=== PATIENT | female | born 1980 | race Hispanic/Latino ===

== ENCOUNTER 2021-03-29 19:10 | Emergency (ER) | payer BC ==
--- OUTSIDE RECORDS SUMMARY | 2021-03-29 19:12 | XMS REPORT | Continuity of Care Document ---
:1980 Author Organization [facility] t Address [address] [place] [address] Care Team Providers Name Role Phone Doctor Unassigned, [place] Attending Clinician Unavailable RADIOLOGY Attending Clinician Unavailable William PENA Attending Clinician Unavailable LALO Attending Clinician Unavailable Payers Payer Name Policy Type Policy Number Effective Date Expiration Date S ource Problems Condition Condition Condition Status Onset Resolution Last Treating Co mments Source Name Details Category Date Date Treatment Clinician Date Migraine Migraine Disease Active Unive rs with with 9-28 ity of status status 00:00: [place] migrainosu migrainosu 00 Me dical s s Branch Persistent Persistent Disease Active U nivers headaches headaches 9-26 ity of 00:00: [address] Headache Headache Disease Active Unive rs 9-25 ity of 00:00: [address] Allergies, Adverse Reactions, Alerts Allergy Allergy Status Severity Reaction(s) Onset Inactive Treating Comm ents Source Name Type Date Date Clinician No Known DA Active U 2017-05 [facility] 2[facility]30 [place] [facility] NO KNOWN Drug Active Univers ALLERGIE Class ity of S [facility] Social History Social Habit Start Date Stop Date Quantity Comments Source Cigarettes smoked 2018-10-12 2018-10-12 Univers ity of current (pack per 00:00:00 00:00:00 [place] ) - Reported Branch Tobacco use and 2018-10-12 2018-10-12 Never used Universit y of exposure 00:00:00 00:00:00 [place] [facility] Alcohol intake 2018-10-12 2018-10-12 Current University of 00:00:00 00:00:00 non-drinker of [facility] alcohol Branch (finding) History of tobacco 2018-08-14 Cigarette Smoker University use 00:00:00 [facility] Sex Ass[birth year] At [birth year] Universit y of 00:00:00 00:00:00 [facility] Smoking Status Start Date Stop Date Source Former smoker 2018-10-12 00:00:00 2018-10-12 [facility] Medications Ordered Filled Start Stop Current Ordering Indication Dosage Frequency Signature Comments Components Source Medication Medication Date Date Medication? Clinician (SIG) Name Name dextroamphe Yes 15mg Take 15 mg Univers tamine-amph 03 by mouth ity of etamine 23:16: daily. [place] (ADDERALL) 13 Medical 15 mg Branch tablet triamcinolo Yes [id number] Apply to [facility] 10-12 area(s) 2 ity of acetonide 00:00: (two) [place] 0.1 % 00 times Medical ointment daily. Branch amoxicillin Yes TK 1 C Q 8 Univers 500 mg 5-20 H TAT ity of capsule 00:00: [place] 00 Medical Branch dextroamphe Yes Univer s tamine-amph 4-04 ity of etamine 15 00:00: [place] mg tablet 00 Medical Branch ondansetron Yes 4mg Take 1 Univ ers (ZOFRAN 4-09 tablet by ity of ODT) 4 mg 00:00: mouth [place] disintegrat 00 every 8 Medic al ing tablet (eight) Branch hours as needed for N/V unresponsi ve to Promethazi ne. acetaminoph Yes 1{tbl} Take 1 Un barbra en-codeine 4-09 tablet by ity of (TYLENOL-CO 00:00: mouth [place] DEINE #3) 00 every 6 Medical 300-30 mg (six) Branch tablet hours as needed for Pain (scale 4-6). SERTraline 2016-05 Yes 100mg Take 100 Un barbra (ZOLOFT) 2-19 mg by ity of 100 mg 03:48: mouth [place] tablet 08 daily. Medical Branch BUSPIRONE 2016-05 Yes Take by Univ ers HCL (BUSPAR 2-19 mouth. ity of ORAL) 03:48: [place] 08 Medical Branch lactulose 2016-05 Yes 10g Take 1 Univer s 10 gram 2-18 Packet by ity of packet 00:00: mouth 3 [place] 00 (three) Medical times Branch daily. Polyethylen 2016-05 Yes 1{packe Take 1 U nivers e Glycol 2-18 t} Packet by ity of 3350 00:00: mouth [place] (MIRALAX) 00 daily. Medical 17 gram Branch powder butalbital- 2016-05 Yes 1{tbl} Take 1 Un barbra acetaminoph 2-18 tablet by ity of en-caff 00:00: mouth [place] 50-325-40 00 every 6 Medical mg tablet (six) Branch hours as needed for Headache (Headache) . sucralfate Yes 1g Take 1 Unive rs 1 gram 6-28 tablet by ity of tablet 00:00: mouth [place] 00 before Medical meals and Branch at bedtime. Pantoprazol Yes 40mg Take 40 mg Univers e 6-28 by mouth ity of (PROTONIX) 00:00: daily. [place] 40 mg 00 Medical delayed-rel Branch ease suspension Polyethylen 2015-05 Yes 17g Take 1 Univ ers e Glycol 0-01 Packet by ity of 3350 00:00: mouth once [place] (MIRALAX) 00 daily as Medica l 17 gram needed for Branch powder Constipati on. topiramate Yes 50mg Take 1 Unive rs (TOPAMAX) 9-28 tablet by ity o f 50 mg 00:00: mouth 2 [place] tablet 00 (two) Medical times Branch daily. sumatriptan Yes 100mg Take 1 Uni vers (IMITREX) 9-28 tablet by ity o f 100 mg 00:00: mouth as [place] tablet 00 needed for Medical Migraine. Branch pantoprazol Yes 40mg Take 1 Univ ers e 9-28 tablet by ity of (PROTONIX) 00:00: mouth [place] 40 mg EC 00 daily. Medical tablet Branch amitriptyli Yes 25mg Take 1 Univ ers ne (ELAVIL) 9-28 tablet by ity of 25 mg 00:00: mouth at [place] tablet 00 bedtime. Medical Branch metoclopram Yes 10mg Take 1 Univ ers osvaldo HCl 9-28 tablet by ity of (REGLAN) 10 00:00: mouth [place] mg tablet 00 every 6 Medical (six) Branch hours as needed for Nausea and Vomiting (N/V). acetaminoph Yes 1{capsu Take 1 U nivers en-caff-but 02-06 le} capsule by it y of albital 00:00: mouth [place] (ESGIC) per 00 every 4 Medic al capsule (four) Branch hours as needed for Headache. ketorolac Yes 10mg Take 1 Univer s (TORADOL) 9-28 tablet by ity o f 10 mg 00:00: mouth [place] tablet 00 every 6 Medical (six) Branch hours as needed for Pain (scale 4-6) or Pain (scale 7-10). Immunizations Ordered Filled Immunization Date Status Comments [facility] Immunization Name Name Td 2015-08-11 [facility] 00:00:00 [facility] Procedures Procedure Date / Time Performed Performing Clinician [facility] REFERRAL- 2020-12-28 05:01:00 Doctor Unassigned, No [facility]iver [facility] [place] REQUEST/RESPONSE Name [facility] Encounters Start End Encounter Admission Attending Care Care Encounter Source Date/Time Date/Time Type Type Clinicians Facility Department ID 2020-12-28 2020-12-28 Orders Doctor YSABEL [id number] [place] [address] 00:00:00 00:00:00 Only Unassigned, BEATRIZ [id number] ity of [place] [facility] [id number] Goran as [id number] [address] 2020-07-25 2020-07-25 Outpatient R RADIOLOGY [facility] [id number] Univers 16:00:00 16:00:00 [id number] ity [facility] 2020-06-28 2020-06-28 Outpatient R BECKY [facility] [id number] Univers 14:30:00 14:30:00 [facility] [id number] 2018-10-12 2018-10-12 Outpatient R LALO [facility] [id number] Univers 18:00:00 18:55:53 [place] ity o f [facility] Results This patient has no known results.
[2021-03-29 21:10] LABS: Urine Blood Trace-intact (Negative); Urine Glucose Negative (Negative); Urine Protein Negative (Negative); Urine Specific Gravity 1.015 (1.005-1.030)
[2021-03-29 21:12] LABS: Urine Specific Gravity/Preg 1.015 (1.005-1.030)
[2021-03-29] MEDS ORDERED: METOCLOPRAMIDE 10 MG/2mL INJ ONE (21:16)
[2021-03-29] MEDS ORDERED: DIPHENHYDRAMINE 50 MG/ML VIAL ONE (21:16)
[2021-03-29] MEDS ORDERED: NA CHLORIDE 0.9% 1,000 ML ONE (21:17)
[2021-03-29] MEDS ORDERED: NA CHLORIDE 0.9% 50 ML ONE (21:17)
--- NOTE | 2021-03-29 21:41 | RAD REPORT ---
EXAM DESCRIPTION: RAD - Chest Single View - 03/29/2021 9:28 pm CLINICAL HISTORY: Chest pain;Dyspnea COMPARISON: <Comparisons> FINDINGS: Lines: None. Lungs: No evidence of edema or pneumonia. Pleural: No significant pleural effusions or pneumothorax. Cardiac: The heart size is within normal limits. Bones: No acute fractures. Other: IMPRESSION: No acute cardiopulmonary disease.
[2021-03-29 21:50] LABS: Absolute Lymphocytes (CBC) 3.3 K/uL (0.7-4.9); Basophils % 0.7 % (0-1.3); Hematocrit 39.4 % (36.0-45.0); MPV 7.8 fL (7.6-11.3); RBC Red Blood Cell Count 4.17 M/uL (3.86-4.86)
[2021-03-29 21:54] LABS: Protime INR 1.03
[2021-03-29 22:13] LABS: ALT/SGPT 62 U/L (12-78); AST/SGOT 39 U/L (15-37); Albumin 3.3 g/dL (3.4-5.0); Alkaline Phosphatase 91 U/L (45-117); BUN Blood Urea Nitrogen 14 mg/dL (7-18); Bicarbonate 20 mmol/L (21-32); Bilirubin Direct < 0.1 mg/dL (0-0.2); Bilirubin Total 0.3 mg/dL (0.2-1.0); Glucose Level 98 mg/dL (74-106); Magnesium 2.2 mg/dL (1.8-2.4); NT PRO-BNP 23 pg/mL (<125); Phosphorus 3.5 mg/dL (2.5-4.9); Potassium 3.8 mmol/L (3.5-5.1); Sodium Level 140 mmol/L (136-145); Troponin (Emerg Dept Use Only) < 0.02 ng/mL (0.0-0.045)
--- NOTE | 2021-03-30 01:10 | ER ---
Nurse's Notes [facility] Name: Katrina Betts Age: 40 yrs Sex: Female : 1980 Arrival Date: 03/29/2021 Time: 19:13 Bed 8 Private MD: Diagnosis: Headache;Chest pain, unspecified;Paresthesias Presentation: 03/29 19:19 Chief complaint: Patient states: at 11 AM I noticed my hands were cold, then they ld1 started tingling. The tingling started to radiate up my left arm and now into my chest causing it harder for me to breathe. Pt reports headache for 2 hours. Coronavirus screen: At this time, the client does not indicate any symptoms associated with coronavirus-19. Ebola Screen: No symptoms or risks identified at this time. Initial Sepsis Screen: Does the patient meet any 2 criteria? No. Patient's initial sepsis screen is negative. Does the patient have a suspected source of infection? No. Patient's initial sepsis screen is negative. Risk Assessment: Do you want to hurt yourself or someone else? Patient reports no desire to harm self or others. Onset of symptoms was March 29, 2021. 19:19 Method Of Arrival: Ambulatory ld1 19:19 Acuity: CINDY 3 ld1 03/30 00:36 Note Pt eating a sandwich and soda. df1 Triage Assessment: 03/29 19:22 Headache History: The patient has had previous headaches and this one is different than ld1 previous episodes, and this one is more severe than previous episodes. General: Appears in no apparent distress. comfortable, Behavior is cooperative, appropriate for age, anxious. Pain: Complains of pain in base of the skull, left arm and lateral aspect of right thigh. Pain: Pain radiates to left arm Pain Quality of pain is described as tingling, throbbing, Pain began 1 day ago. Is continuous. Pain: Also complains of sleeplessness, shortness of breath. EENT: No signs and/or symptoms were reported regarding the EENT system. Neuro: Level of Consciousness is awake, alert, obeys commands, Oriented to person, place, time, situation, Appropriate for age. Cardiovascular: Capillary refill < 3 seconds Patient's skin is warm and dry. Respiratory: Airway is patent Respiratory effort is even, unlabored, Respiratory pattern is regular, symmetrical. GI: Abdomen is round non-distended. : No signs and/or symptoms were reported regarding the genitourinary system. Derm: No signs and/or symptoms reported regarding the dermatologic system. Musculoskeletal: Reports Tingling in both hands and feet. 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 Historical: - Allergies: 19:22 No Known Allergies; ld1 - Home Meds: 19:22 fluoxetine 10 mg Oral cap 1 cap 2 times per day [Active]; Topamax 25 mg Oral tab 1 tab ld1 once daily [Active]; omeprazole 20 mg Oral cpDR 1 cap 2 times per day [Active]; dicyclomine 10 mg Oral cap 1 cap 3 times per day [Active]; Viberzi 75 mg oral tab 1 tab 2 times per day [Active]; Adderall XR 30 mg Oral cp24 1 cap once daily [Active]; Headache Relief (TLR-enlxjmvqtwyh-jdmyzbkr) oral [Active]; Benadryl 12.5 mg/5 mL Oral elix 10 mL every 4 hours [Active]; Zofran 4 mg Oral tab 1 tab 4 times per day [Active]; duloxetine 30 mg oral CDRS 1 cap once daily [Active]; Topamax 15 mg Oral cpSP 1 cap 2 times per day [Active]; 19:30 gabapentin 300 mg oral cap 1 cap 3 times per day [Active]; ld1 - PMHx: 19:22 Anxiety; Irritable bowel syndrome; Depressive disorder; ADD; ld1 - PSHx: 19:22 None; ld1 - Immunization history:: Adult Immunizations up to date, Client reports receiving the 2nd dose of the Covid vaccine. - Social history:: Smoking status: Patient reports the use of cigarette tobacco products, smokes one pack cigarettes per day. Patient uses alcohol, occasionally. Screenin:21 Abuse screen: Denies threats or abuse. Nutritional screening: No deficits noted. df1 Tuberculosis screening: No symptoms or risk factors identified. Fall Risk None identified. Assessment: 22:51 General: Appears uncomfortable, Behavior is calm, cooperative. Pain: Complains of pain df1 in left arm Pain currently is 4 out of 10 on a pain scale. Neuro: No deficits noted. Reports numbness in left arm. Cardiovascular: No deficits noted. Respiratory: No deficits noted. GI: No deficits noted. : No deficits noted. EENT: No deficits noted. Musculoskeletal: No deficits noted. 22:52 Pain: Complains of pain in scalp Pain currently is 4 out of 10 on a pain scale. df1 Vital Signs: 19:19 BP 128 / 103; Pulse 119; Resp 20; Temp 98.7(TE); Pulse Ox 99% on R/A; Weight 95.25 kg; ld1 Height 5 ft. 4 in. (162.56 cm); Pain 6/10; 21:36 BP 110 / 81; Pulse 99; Resp 18; Pulse Ox 100% on R/A; df1 22:52 BP 94 / 63; Pulse 89; Resp 18; Pulse Ox 100% on R/A; df1 03/30 00:36 BP 101 / 68; Pulse 99; Resp 18; Pulse Ox 99% on R/A; df1 03/29 19:19 Body Mass Index 36.05 (95.25 kg, 162.56 cm) ld1 NIH Stroke Scale Scores: 03/29 21:12 NIHSS Score: 0 [facility] ED Course: 19:13 Patient arrived in ED. bp1 19:22 Triage completed. ld1 19:22 Arm band placed on right wrist. ld1 20:43 August Ng MD is Attending Physician. 7 21:05 Camelia Veras is Primary Nurse. df1 21:20 Phosphorus Sent. df1 21:20 TSH Sent. df1 21:20 Basic Metabolic Panel Sent. df1 21:20 CBC with Diff Sent. df1 21:20 LFT's Sent. df1 21:20 Magnesium Sent. df1 21:20 NT PRO-BNP Sent. df1 21:20 PT-INR Sent. df1 21:20 Troponin (emerg Dept Use Only) Sent. df1 21:21 Patient has correct armband on for positive identification. Placed in gown. Bed in low df1 position. Call light in reach. Side rails up X 1. lunchroom monitor on. Pulse ox on. NIBP on. 21:21 Inserted saline lock: 20 gauge in right forearm, using aseptic technique. df1 21:21 No provider procedures requiring assistance completed. df1 21:28 XRAY Chest (1 view) In Process Unspecified. EDMS 22:35 CT Chest For PE Angio In Process Unspecified. EDMS 22:36 CT Head C Spine In Process Unspecified. EDMS 03/30 02:03 IV discontinued, intact, bleeding controlled, No redness/swelling at site. Pressure df1 dressing applied. Administered Medications: 03/29 21:35 Drug: Benadryl (diphenhydrAMINE) 50 mg Route: IVP; Site: right forearm; df1 21:35 Drug: NS 0.9% 1000 ml Route: IV; Rate: 1000 ml; Site: right forearm; df1 21:36 Drug: Reglan (metoCLOPramide) 10 mg Route: IVP; Site: right forearm; df1 Outcome: 03/30 01:10 Discharge ordered by . 7 02:03 Discharged to home ambulatory. df1 02:03 Condition: stable 02:03 Demonstrated understanding of instructions, follow-up care. 02:03 Patient left the ED. df1 NIH Stroke Scale - NIH Stroke Score Date: 03/29/2021 Time: 21:12 Total Score = 0 1a. Level of Consciousness (LOC) - 0(Alert) 1b. Level of Consciousness (LOC) (Month \T\ Age) - 0(Both) 1c. LOC Commands (Open \T\ Closes Eyes/Stretching Press Operator) - 0(Both) 2. Best Gaze (Lateral Gaze Paresis) - 0(Normal) 3. Visual Field Loss - 0(No visual loss) 4. Facial Palsy - 0(Normal) 5a. Left Arm: Motor (10-second hold) - 0(No drift) 5b. Right Arm: Motor (10-second hold) - 0(No drift) 6a. Left Leg: Motor (5-second hold - always test supine) - 0(No drift) 6b. Right Leg: Motor (5-second hold - always test supine) - 0(No drift) 7. Limb Ataxia (finger/nose \T\ heel/hein - test with eyes open) - 0(Absent) 8. Sensory Loss (pinprick arms/legs/face) - 0(Normal) 9. Best Language: Aphasia (description/naming/reading) - 0(No aphasia) 10. Dysarthria (speech clarity - read or repeat words) - 0(Normal) 11. Extinction and Inattention (visual/tactile/auditory/spatial/personal) - 0(No abnormality) Initials: 7 Signatures: Dispatcher [employer] EDHans Terrell ds4 Agnieszka Riojas Maurice, MD MD 7 Mallorie Reyes RN RN ld1 Camelia Veras df1 Corrections: (The following items were deleted from the chart) 03/29 19:26 19:22 Allergies: Aspirin; ld1 ld1 21:28 21:28 Inserted saline lock: 20 gauge ds4 ds4
--- NOTE | 2021-03-30 01:11 | EDPHYS ---
Physician Documentation [facility] Name: Katrina Betts Age: 40 yrs Sex: Female : 1980 Arrival Date: 03/29/2021 Time: 19:13 Bed 8 Private MD: ED Physician August Ng HPI: 03/29 21:05 This 40 yrs old Female presents to ER via Ambulatory with complaints of mh7 Headache, Numbness Of Arm. 21:06 The patient's problem is reported as paresthesias, all over. Onset: The mh7 symptoms/episode began/occurred today, at 11:00. Duration: The episodes are intermittent. Context: the episode(s) was witnessed, by no one, symptoms became apparent on March 29, 2021, at 11:00. occurred at work, occurred while the patient was sitting, Possible contributing factors include: Stress. The symptoms are alleviated by nothing. The symptoms are aggravated by nothing. Associated signs and symptoms: Pertinent positives: chest pain, headache, numbness, shortness of breath, tingling, Pertinent negatives: abdominal pain, agitation, ataxia, blurred vision, combativeness, confusion, diaphoresis, diarrhea, dizziness, lightheadedness, nausea, palpitations, seizure, vertigo, vomiting, weakness. Severity of symptoms: At their worst the symptoms were moderate today, in the emergency department the symptoms have improved moderately. Patient's baseline: Neuro: alert and fully oriented, Motor: no deficits, Ambulation: walks without assistance, Speech: normal. RESTORATIVE COORDINATOR: 19:22 LMP N/A - Patient said she has irregular periods and she has no clue when her last ld1 period was. Historical: - Allergies: 19:22 No Known Allergies; ld1 - Home Meds: 19:22 fluoxetine 10 mg Oral cap 1 cap 2 times per day [Active]; Topamax 25 mg Oral tab 1 tab ld1 once daily [Active]; omeprazole 20 mg Oral cpDR 1 cap 2 times per day [Active]; dicyclomine 10 mg Oral cap 1 cap 3 times per day [Active]; Viberzi 75 mg oral tab 1 tab 2 times per day [Active]; Adderall XR 30 mg Oral cp24 1 cap once daily [Active]; Headache Relief (OCP-lnbtfvvyasrd-misiwvuy) oral [Active]; Benadryl 12.5 mg/5 mL Oral elix 10 mL every 4 hours [Active]; Zofran 4 mg Oral tab 1 tab 4 times per day [Active]; duloxetine 30 mg oral CDRS 1 cap once daily [Active]; Topamax 15 mg Oral cpSP 1 cap 2 times per day [Active]; 19:30 gabapentin 300 mg oral cap 1 cap 3 times per day [Active]; ld1 - PMHx: 19:22 Anxiety; Irritable bowel syndrome; Depressive disorder; ADD; ld1 - PSHx: 19:22 None; ld1 - Immunization history:: Adult Immunizations up to date, Client reports receiving the 2nd dose of the Covid vaccine. - Social history:: Smoking status: Patient reports the use of cigarette tobacco products, smokes one pack cigarettes per day. Patient uses alcohol, occasionally. ROS: 21:06 Constitutional: Negative for fever, chills, and weight loss, Eyes: Negative for injury, mh7 pain, redness, and discharge, ENT: Negative for injury, pain, and discharge, Neck: Negative for injury, pain, and swelling, Abdomen/GI: Negative for abdominal pain, nausea, vomiting, diarrhea, and constipation, Back: Negative for injury and pain, : Negative for injury, bleeding, discharge, and swelling, MS/Extremity: Negative for injury and deformity, Skin: Negative for injury, rash, and discoloration, Psych: Negative for depression, anxiety, suicide ideation, homicidal ideation, and hallucinations, Allergy/Immunology: Negative for hives, rash, and allergies, Endocrine: Negative for neck swelling, polydipsia, polyuria, polyphagia, and marked weight changes, Hematologic/Lymphatic: Negative for swollen nodes, abnormal bleeding, and unusual bruising. Exam: 21:06 Head/Face: Normocephalic, atraumatic. Eyes: Pupils equal round and reactive to light, mh7 extra-ocular motions intact. Lids and lashes normal. Conjunctiva and sclera are non-icteric and not injected. Cornea within normal limits. Periorbital areas with no swelling, redness, or edema. Neck: Trachea midline, no thyromegaly or masses palpated, and no cervical lymphadenopathy. Supple, full range of motion without nuchal rigidity, or vertebral point tenderness. No Meningismus. 21:06 Chest/axilla: Normal chest wall appearance and motion. Nontender with no deformity. No lesions are appreciated. 21:06 Respiratory: Lungs have equal breath sounds bilaterally, clear to auscultation and percussion. No rales, rhonchi or wheezes noted. No increased work of breathing, no retractions or nasal flaring. Abdomen/GI: Soft, non-tender, with normal bowel sounds. No distension or tympany. No guarding or rebound. No evidence of tenderness throughout. Back: No spinal tenderness. No costovertebral tenderness. Full range of motion. Skin: Warm, dry with normal turgor. Normal color with no rashes, no lesions, and no evidence of cellulitis. MS/ Extremity: Pulses equal, no cyanosis. Neurovascular intact. Full, normal range of motion. Neuro: Awake and alert, GCS 15, oriented to person, place, time, and situation. Cranial nerves II-XII grossly intact. Motor strength 5/5 in all extremities. Sensory grossly intact. Cerebellar exam normal. Normal gait. 21:06 Constitutional: The patient appears in no acute distress, alert, awake, anxious. 21:06 Head/face: Noted is tenderness, that is moderate, of the Posterior scalp. 21:06 Cardiovascular: Rate: tachycardic, Rhythm: regular, Pulses: no pulse deficits are appreciated, Heart sounds: normal, normal S1and S2, Edema: is not appreciated, JVD: is not appreciated. 21:06 Psych: Behavior/mood is cooperative, anxious, Affect is Oriented to person, place, time, Patient has no thoughts/intents to harm self or others. Judgement / Insight is normal. Memory is normal. Delusions/hallucinations are not present. 03/30 01:12 Radiologist reports: No acute findings [facility] Vital Signs: 03/29 19:19 BP 128 / 103; Pulse 119; Resp 20; Temp 98.7(TE); Pulse Ox 99% on R/A; Weight 95.25 kg; ld1 Height 5 ft. 4 in. (162.56 cm); Pain /10; 21:36 BP 110 / 81; Pulse 99; Resp 18; Pulse Ox 100% on R/A; df1 22:52 BP 94 / 63; Pulse 89; Resp 18; Pulse Ox 100% on R/A; df1 03/30 00:36 BP 101 / 68; Pulse 99; Resp 18; Pulse Ox 99% on R/A; df1 03/29 19:19 Body Mass Index 36.05 (95.25 kg, 162.56 cm) ld1 NIH Stroke Scale Scores: 03/29 21:12 NIHSS Score: 0 7 MDM: 03/30 01:06 Differential diagnosis: CVA, TIA, metabolic disorder, drug effects, Paresthesias, [facility] migraine, chest pain, pulmonary embolus, electrolyte abnormality. Data reviewed: vital signs, nurses notes, old medical records, lab test result(s), cardiac enzymes, CBC, electrolytes, urinalysis, EKG, radiologic studies, CT scan, plain films. Data interpreted: Pulse oximetry: on room air is 99 %. Interpretation: normal. Counseling: I had a detailed discussion with the patient and/or guardian regarding: the historical points, exam findings, and any diagnostic results supporting the discharge/admit diagnosis, lab results, radiology results, the need for outpatient follow up, a neurologist. Response to treatment: the patient's symptoms have resolved after treatment, the patient's blood pressure is in an acceptable range, mental status has returned to baseline, the patient no longer shows bradycardia, the patient is not short of breath, the patient is not tachycardic, the patient's pain is gone, the patient's temperature has normalized. 01:10 Patient medically screened. [facility] 03/29 21:03 Order name: Basic Metabolic Panel; Complete Time: 22:17 [facility] 03/29 21:03 Order name: CBC with Diff; Complete Time: 22:17 [facility] 03/29 21:03 Order name: LFT's; Complete Time: 22: [facility] 03/29 21:03 Order name: Magnesium; Complete Time: 22:17 [facility] 03/29 21:03 Order name: NT PRO-BNP; Complete Time: 22:17 [facility] 03/29 21:03 Order name: PT-INR; Complete Time: 22:17 [facility] 03/29 21:03 Order name: Troponin (emerg Dept Use Only); Complete Time: 22:17 [facility] 03/29 21:03 Order name: XRAY Chest (1 view); Complete Time: 21:47 [facility] 03/29 21:03 Order name: Phosphorus; Complete Time: 22:17 [facility] 03/29 21:03 Order name: TSH; Complete Time: 22:17 [facility] 03/29 21:09 Order name: Urine Dipstick-Ancillary; Complete Time: 21:33 EDMS 03/29 21:10 Order name: Urine --Ancillary (enter results); Complete Time: 21:33 cs9 03/29 21:49 Order name: CT Chest For PE Angio [facility] 03/29 21:49 Order name: CT Head C Spine [facility] 03/29 21:03 Order name: EKG; Complete Time: 21:04 [facility] 03/29 21:03 Order name: Cardiac monitoring; Complete Time: 21:20 [facility] 03/29 21:03 Order name: EKG - Nurse/Tech; Complete Time: 21:20 [facility] 03/29 21:03 Order name: IV Saline Lock; Complete Time: 21:20 [facility] 03/29 21:03 Order name: Labs collected and sent; Complete Time: 21:20 [facility] 03/29 21:03 Order name: O2 Per Protocol; Complete Time: 21:20 [facility] 03/29 21:03 Order name: O2 Sat Monitoring; Complete Time: 21:20 [facility] 03/29 21:03 Order name: Urine Dipstick-Ancillary (obtain specimen); Complete Time: 21:20 [facility] 03/29 21:03 Order name: Urine Test (obtain specimen); Complete Time: 21:20 [facility] Administered Medications: 03/29 21:35 Drug: Benadryl (diphenhydrAMINE) 50 mg Route: IVP; Site: right forearm; df1 21:35 Drug: NS 0.9% 1000 ml Route: IV; Rate: 1000 ml; Site: right forearm; df1 21:36 Drug: Reglan (metoCLOPramide) 10 mg Route: IVP; Site: right forearm; df1 Disposition Summary: 03/30/21 01:10 Discharge Ordered Location: Home [facility] Problem: new [facility] Symptoms: have improved [facility] Condition: Stable [facility] Diagnosis - Headache [facility] - Parasthesias 7 - Chest pain, unspecified [facility] - Paresthesias [facility] Followup: [facility] - With: Private Physician - When: 1 - 2 days - Reason: Worsening of condition, Recheck today's complaints, Continuance of care, Re-evaluation by your physician Discharge Instructions: - Discharge Summary Sheet [facility] - Nonspecific Chest Pain, Adult, [id number] [facility] - General Headache Without Cause, [id number] [facility] - Paresthesia, [id number] [facility] Forms: - Medication Reconciliation Form [facility] - Thank You Letter [facility] - Antibiotic Education [facility] - Prescription Opioid Use [facility] NIH Stroke Scale - NIH Stroke Score Date: 03/29/2021 Time: 21:12 Total Score = 0 1a. Level of Consciousness (LOC) - 0(Alert) 1b. Level of Consciousness (LOC) (Month \T\ Age) - 0(Both) 1c. LOC Commands (Open \T\ Closes Eyes/Weight Analyst) - 0(Both) 2. Best Gaze (Lateral Gaze Paresis) - 0(Normal) 3. Visual Field Loss - 0(No visual loss) 4. Facial Palsy - 0(Normal) 5a. Left Arm: Motor (10-second hold) - 0(No drift) 5b. Right Arm: Motor (10-second hold) - 0(No drift) 6a. Left Leg: Motor (5-second hold - always test supine) - 0(No drift) 6b. Right Leg: Motor (5-second hold - always test supine) - 0(No drift) 7. Limb Ataxia (finger/nose \T\ heel/hein - test with eyes open) - 0(Absent) 8. Sensory Loss (pinprick arms/legs/face) - 0(Normal) 9. Best Language: Aphasia (description/naming/reading) - 0(No aphasia) 10. Dysarthria (speech clarity - read or repeat words) - 0(Normal) 11. Extinction and Inattention (visual/tactile/auditory/spatial/personal) - 0(No abnormality) Initials: [facility] Signatures: Dispatcher [employer] August Clark MD MD 7 Mallorie Reyes RN RN [email or web address] Camelia Veras df1 Corrections: (The following items were deleted from the chart) 19:26 19:22 Allergies: Aspirin; ld1 ld1
[2021-03-30 02:29] VITALS: TEMP 98.7
[2021-03-30 02:33] VITALS: BP 101/68; O2SAT 99
--- NOTE | 2021-03-30 10:36 | RAD REPORT ---
EXAM DESCRIPTION: CT - Head C Spine Mpr Wo Con - 03/30/2021 6:27 am CLINICAL HISTORY: Trauma. COMPARISON: None. TECHNIQUE: CT scan of the brain and cervical spine was performed without IV contrast. This exam was performed according to our departmental dose-optimization program, which includes automated exposure control, adjustment of the mA and/or kV according to patient size and/or use of iterative reconstruct ion technique. FINDINGS: BRAIN: The ventricles, cisterns, and sulci are age-appropriate. No evidence of acute infarction, intracrania l hemorrhage, extra-axial fluid collection, or midline shift. No air-fluid levels are seen in the par anasal sinuses to suggest acute sinusitis. No depressed skull fracture. CERVICAL SPINE: No acute cervical fracture or prevertebral soft tissue swelling. There is straightening of the normal cervical lordosis, which may be due to cervical collar, muscle spasm, or patient positioning. The fa cet joints and disc spaces are preserved. No advanced canal stenosis is identified. IMPRESSION: 1. No acute intracranial hemorrhage. 2. No acute fracture or subluxation of the cervical spine. Electronically signed by: Jerry Ocampo MD 03/29/2021 10:48 PM SPINDLE REPAIRER Due to temporary technical issues with the PACS/Fluency reporting system, reports are being signed by the in house radiologist without review as a courtesy to ensure prompt reporting. The interpreting r adiologist is fully responsible for the content of the report.
--- NOTE | 2021-03-30 10:37 | RAD REPORT ---
EXAM DESCRIPTION: CT - Chest For Pe Angio - 03/30/2021 6:27 am CLINICAL HISTORY: 40 years Female Chest were COMPARISON: None TECHNIQUE: Images were obtained in axial, sagittal, and coronal planes. Intravenous contrast was adm inistered. 3-D MIP imaging was performed. This exam was performed according to our departmental dose-optimization program which includes use of Automated Exposure Control, adjustment of the mA and/or kV according to patient size and/or use o f iterative reconstruction technique. FINDINGS: No filling defects pulmonary arteries bilaterally. No aortic dissection or dilatation. No pericardial or pleural effusions bilaterally. No adenopathy. No lung parenchymal infiltrates or nodules seen. No pneumothorax. No acute osseous abnormality. No abnormality visualized upper abdomen. IMPRESSION: No evidence for pulmonary embolus. No aortic dissection or dilatation. No infiltrates se en. Electronically signed by: Veronica Paz MD 03/29/2021 11:14 PM MEDICAL RECORD CODER Due to temporary technical issues with the PACS/Fluency reporting system, reports are being signed by the in house radiologist without review as a courtesy to ensure prompt reporting. The interpreting r adiologist is fully responsible for the content of the report.
--- NOTE | 2021-03-30 13:18 | EKG ---
Test Date: 2021-03-29 Test Time: 21:14:22 Senior Program Planner: MEASUREMENT RESULTS: Intervals: Rate: 86 MA: 110 QRSD: 90 QT: 382 QTc: 457 [place]: P: 51 MA: 110 QRS: 21 T: 27 INTERPRETIVE STATEMENTS: Sinus rhythm with short MA Otherwise normal ECG No previous ECG available for comparison Electronically Signed On 03-30-21 13:16:15 BULL GANG SUPERVISOR by Grant Wilcox
== END 2021-03-30 02:03 | disposition home or self-care (01) ==
LOC: ER 19:10
DX: R51.9 Headache, unspecified (principal); R20.2 Paresthesia of skin; R07.9 Chest pain, unspecified; F32.A Depression, unspecified; F17.210 Nicotine dependence, cigarettes, uncomplicated
CPT/HCPCS: 93005; 85025; 80048; 36415; 83735; 81025; 84100; 85610; 80076; 84443; 81003; 84484; 83880; 70450; 72125; 71275; 71045; 96375; 96374; 99284; Q9967; J2765; J1200; J7030

== ENCOUNTER 2021-04-03 12:01 | Emergency (ER) | payer BC ==
--- OUTSIDE RECORDS SUMMARY | 2021-04-03 12:04 | XMS REPORT | Continuity of Care Document ---
:1980 Author Organization [facility] t Address [address] [place] [address] Care Team Providers Name Role Phone Doctor Unassigned, [place] Attending Clinician Unavailable RADIOLOGY Attending Clinician Unavailable William PENA Attending Clinician Unavailable LALO Attending Clinician Unavailable Payers Payer Name Policy Type Policy Number Effective Date Expiration Date S ource Problems Condition Condition Condition Status Onset Resolution Last Treating Co mments Source Name Details Category Date Date Treatment Clinician Date Migraine Migraine Disease Active Unive rs with with 9-28 ity of status status 00:00: [place] migrainosu migrainosu 00 Me dical s s Branch Persistent Persistent Disease Active U nivers headaches headaches 9-26 ity of 00:00: [address] Headache Headache Disease Active Unive rs 9-25 ity of 00:00: [address] Allergies, Adverse Reactions, Alerts Allergy Allergy Status Severity Reaction(s) Onset Inactive Treating Comm ents Source Name Type Date Date Clinician No Known DA Active U 2017-05 [facility] All[facility]ie 2-30 [place] [facility] NO KNOWN Drug Active Univers ALLERGIE Class ity of S [facility] Social History Social Habit Start Date Stop Date Quantity Comments Source Cigarettes smoked 2018-10-12 2018-10-12 Univers ity of current (pack per 00:00:00 00:00:00 [place] ) - Reported Branch Tobacco use and 2018-10-12 2018-10-12 Never used Universit y of exposure 00:00:00 00:00:00 [place] [facility] Alcohol intake 2018-10-12 2018-10-12 Current University of 00:00:00 00:00:00 non-drinker of [facility] alcohol Branch (finding) History of tobacco 2018-08-14 Cigarette Smoker University use 00:00:[address] [facility] Sex Ass[birth year] Universit y of 00:00:00 00:00:[address] [facility] Smoking Status Start Date Stop Date Source Former smoker 2018-10-12 00:00:00 2018-10-12 [facility] Medications Ordered Filled Start Stop Current Ordering Indication Dosage Frequency Signature Comments Components Source Medication Medication Date Date Medication? Clinician (SIG) Name Name dextroamphe Yes 15mg Take 15 mg Univers tamine-amph 03 by mouth ity of etamine 23:16: daily. [place] (ADDERALL) 13 Medical 15 mg Branch tablet triamcinolo Yes [id number] Apply to [facility] 10-12 area(s) 2 ity of acetonide 00:00: (two) [place] 0.1 % 00 times Medical ointment daily. Branch amoxicillin Yes TK 1 C Q 8 Univers 500 mg 5-20 H TAT ity of capsule 00:00: [place] 00 Medical Branch dextroamphe Yes Univer s [...] Immunizations Ordered Filled Immunization Date Status Comments [facility] e Immunization Name Name Td 2015-08-11 [facility] 00:00:[address] [facility] Procedures Procedure Date / Time Performed Performing Clinician [facility] e REFERRAL- 2020-12-28 05:01:00 Doctor Unassigned, No [facility]iver [facility] [place] REQUEST/RESPONSE Name [facility] Encounters Start End Encounter Admission Attending Care Care Encounter Source Date/Time Date/Time Type Type Clinicians Facility Department ID 2020-12-28 2020-12-28 Orders Doctor YSABEL [id number] [place] [address] 00:00:00 00:00:00 Only Unassigned, BEATRIZ [id number] ity of [place] [facility] [id number] Goran as [id number] [address] 2020-07-25 2020-07-25 Outpatient R RADIOLOGY [facility] [id number] Univers 16:00:00 16:00:00 [id number] ity [facility] 2020-06-28 2020-06-28 Outpatient R BECKY [facility] [id number] Univers 14:30:00 14:30:00 [facility] [id number] [facility] 2018-10-12 2018-10-12 Outpatient R LALO [facility] [id number] Univers 18:00:00 18:55:53 [place] ity o f [facility] Results This patient has no known results.
--- NOTE | 2021-04-03 13:34 | RAD REPORT ---
EXAM DESCRIPTION: RAD - Chest Single View - 04/03/2021 1:20 pm CLINICAL HISTORY: SOB COMPARISON: March 29 TECHNIQUE: AP portable chest image was obtained 04/03/2021 1:20 pm . FINDINGS: No peripheral mass or consolidation. Bibasilar lung markings are accentuated by a shallow inspiration and under penetrated portable technique. Overlying soft tissues accentuate markers as wel l. Mild lung base edema or infiltrate could be masked. There is no significant failure or volume over load component. Heart and vasculature are normal. No measurable pleural effusion and no pneumothorax. No acute bony abnormality seen. No acute aortic findings suspected. IMPRESSION: No acute cardiopulmonary process. The above detailed limitations could mask early edema or infiltrate into either lung base.
[2021-04-03 13:55] LABS: Absolute Lymphocytes (CBC) 2.7 K/uL (0.7-4.9); Basophils % 0.5 % (0-1.3); Lymphocytes % 23.6 % (15.3-44.8); MPV 7.9 fL (7.6-11.3); RBC Red Blood Cell Count 4.28 M/uL (3.86-4.86)
[2021-04-03 13:56] LABS: Protime INR 0.99
[2021-04-03 14:15] LABS: ALT/SGPT 36 U/L (12-78); AST/SGOT 17 U/L (15-37); Albumin 3.1 g/dL (3.4-5.0); Alkaline Phosphatase 101 U/L (45-117); BUN Blood Urea Nitrogen 12 mg/dL (7-18); Bicarbonate 26 mmol/L (21-32); Bilirubin Direct < 0.1 mg/dL (0-0.2); Bilirubin Total 0.2 mg/dL (0.2-1.0); Glucose Level 99 mg/dL (74-106); NT PRO-BNP 50 pg/mL (<125); Potassium 3.9 mmol/L (3.5-5.1); Protein, Total 6.8 g/dL (6.4-8.2); Sodium Level 143 mmol/L (136-145); Troponin (Emerg Dept Use Only) < 0.02 ng/mL (0.0-0.045)
--- NOTE | 2021-04-03 14:26 | RAD REPORT ---
EXAM DESCRIPTION: US - Extrem Venous W Compress Michael - 04/03/2021 2:10 pm CLINICAL HISTORY: Pain;Swelling COMPARISON: None. TECHNIQUE: Real-time sonographic evaluation of the bilateral lower extremity common femoral, superfi cial femoral, popliteal and posterior tibial veins was performed. FINDINGS: Normal compressibility, flow augmentation, phasic flow and spontaneous flow are identified in the left and right lower extremity common femoral, superficial femoral, popliteal and posterior t ibial veins. No intraluminal filling defects seen. IMPRESSION: No DVT in either lower extremity.
--- NOTE | 2021-04-03 14:42 | RAD REPORT ---
EXAM DESCRIPTION: RAD - Ankle Right 3 View - 04/03/2021 2:35 pm CLINICAL HISTORY: PAIN COMPARISON: No comparisons FINDINGS: No fracture, dislocation or periosteal reaction. No joint effusion seen. No joint space na rrowing. Soft tissues lateral to the distal fibula, talus and calcaneus are prominent with the baseli ne unknown. IMPRESSION: No acute bone or joint finding identifiable. Prominent lateral soft tissues.
[2021-04-03] MEDS ORDERED: FUROSEMIDE 40 MG/4 ML VIAL ONE (15:06)
--- NOTE | 2021-04-03 15:48 | EDPHYS ---
Physician Documentation [facility] Name: Katrina Betts Age: 40 yrs Sex: Female : 1980 Arrival Date: 04/03/2021 Time: 12:03 Bed 13 Private MD: ED Physician He Johnson HPI: 04/03 13:31 This 40 yrs old Female presents to ER via Ambulatory with complaints of kdr Shortness Of Breath, Chest Pain, High Blood Pressure, Leg Swelling. 13:31 Patient was here last week for similar complaints. She has had shortness of breath kdr bilateral leg swelling and which she considers to be extreme high blood pressure for the last 2 weeks. She is also had intermittent but mostly persistent chest pain. She also claims that both lower extremities are swollen which is unusual for her.. 13:32 The patient has shortness of breath with light activity. Onset: The symptoms/episode kdr began/occurred gradually, 2 week(s) ago. Duration: The symptoms are intermittent, with no pattern, Worse with exertion. The patient's shortness of breath is aggravated by exertion, light activity. Associated signs and symptoms: The patient has no apparent associated signs or symptoms. Severity of symptoms: At their worst the symptoms were mild moderate just prior to arrival, in the emergency department the symptoms are unchanged. The patient has not experienced similar symptoms in the past. The patient has been recently seen by a physician: The patient has been recently seen at the [facility] Emergency Department, this week. 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 - Social history:: Smoking status: Patient reports the use of cigarette tobacco products, smokes one pack cigarettes per day. ROS: 13:32 Constitutional: Negative for fever, chills, and weight loss, Eyes: Negative for injury, kdr pain, redness, and discharge, Neck: Negative for injury, pain, and swelling, Abdomen/GI: Negative for abdominal pain, nausea, vomiting, diarrhea, and constipation, Back: Negative for injury and pain, : Negative for injury, bleeding, discharge, and swelling, Skin: Negative for injury, rash, and discoloration, Neuro: Negative for headache, weakness, numbness, tingling, and seizure activity. Psych: Negative for depression, anxiety, suicide ideation, homicidal ideation, and hallucinations, Allergy/Immunology: Negative for hives, rash, and allergies, Endocrine: Negative for neck swelling, polydipsia, polyuria, polyphagia, and marked weight changes, Hematologic/Lymphatic: Negative for swollen nodes, abnormal bleeding, and unusual bruising. 13:32 Cardiovascular: Positive for chest pain, Negative for edema, orthopnea, palpitations, paroxysmal nocturnal dyspnea. 13:32 Respiratory: Positive for dyspnea on exertion, shortness of breath, on exertion. 13:32 Cardiovascular: Positive for edema. kdr Exam: 13:32 Constitutional: This is a well developed, well nourished patient who is awake, alert, kdr and in no acute distress. Head/Face: Normocephalic, atraumatic. Eyes: Pupils equal round and reactive to light, extra-ocular motions intact. Lids and lashes normal. Conjunctiva and sclera are non-icteric and not injected. Cornea within normal limits. Periorbital areas with no swelling, redness, or edema. Neck: Trachea midline, no thyromegaly or masses palpated, and no cervical lymphadenopathy. Supple, full range of motion without nuchal rigidity, or vertebral point tenderness. No Meningismus. Chest/axilla: Normal chest wall appearance and motion. Nontender with no deformity. No lesions are appreciated. Cardiovascular: Regular rate and rhythm with a normal S1 and S2. No gallops, murmurs, or rubs. Normal PMI, no JVD. No pulse deficits. Respiratory: Lungs have equal breath sounds bilaterally, clear to auscultation and percussion. No rales, rhonchi or wheezes noted. No increased work of breathing, no retractions or nasal flaring. Abdomen/GI: Soft, non-tender, with normal bowel sounds. No distension or tympany. No guarding or rebound. No evidence of tenderness throughout. Back: No spinal tenderness. No costovertebral tenderness. Full range of motion. Skin: Warm, dry with normal turgor. Normal color with no rashes, no lesions, and no evidence of cellulitis. MS/ Extremity: Pulses equal, no cyanosis. Neurovascular intact. Full, normal range of motion. Neuro: Awake and alert, GCS 15, oriented to person, place, time, and situation. Cranial nerves II-XII grossly intact. Motor strength 5/5 in all extremities. Sensory grossly intact. Cerebellar exam normal. Normal gait. Psych: Awake, alert, with orientation to person, place and time. Behavior, mood, and affect are within normal limits. 13:32 Cardiovascular: Edema: 1+ edema to level of left midcalf, left ankle, left foot, right midcalf, right ankle and right foot. 13:32 Cardiovascular: Rate: normal, Rhythm: regular, Pulses: no pulse deficits are appreciated, Heart sounds: normal. 13:32 ECG was reviewed by the Attending Physician. Vital Signs: 12:15 BP 131 / 89; Pulse 98; Resp 18 S; Temp 98.5(TE); Pulse Ox 99% on R/A; Weight 102.24 kg aa5 (R); Height 5 ft. 4 in. (162.56 cm) (R); 12:30 BP 109 / 78; Pulse 88; Temp 98.4; Pulse Ox 99% ; tp1 13:30 BP 111 / 72; Pulse 76; Resp 17; Pulse Ox 100% on R/A; jh6 15:43 BP 108 / 64; Pulse 70; Resp 16; Temp 98.2(O); Pulse Ox 100% ; Pain 3/10; jh6 12:15 Body Mass Index 38.69 (102.24 kg, 162.56 cm) aa5 MDM: 15:47 Patient medically screened. kdr 15:50 Data reviewed: vital signs, nurses notes, lab test result(s), radiologic studies. kdr Counseling: I had a detailed discussion with the patient and/or guardian regarding: the historical points, exam findings, and any diagnostic results supporting the discharge/admit diagnosis, lab results, radiology results, the need for outpatient follow up. ED course: Patient was stable in the ED and improved with the interventions given. She was happy with the care provided and the plan for discharge and follow-up. 04/03 12:39 Order name: Basic Metabolic Panel; Complete Time: 15:22 kdr 04/03 12:39 Order name: CBC with Diff; Complete Time: 15:22 kdr 04/03 12:39 Order name: LFT's; Complete Time: 15:22 kdr 04/03 12:39 Order name: Magnesium; Complete Time: 15: [facility] 04/03 12:39 Order name: NT PRO-BNP; Complete Time: 15: [facility] 04/03 12:39 Order name: PT-INR; Complete Time: 15: [facility] 04/03 12:39 Order name: Troponin (emerg Dept Use Only); Complete Time: 15: [facility] 04/03 12:39 Order name: XRAY Chest (1 view); Complete Time: 15: [facility] 04/03 12:39 Order name: EKG; Complete Time: 12:40 [facility] 04/03 12:39 Order name: Cardiac monitoring; Complete Time: 15: [facility] 04/03 12:39 Order name: EKG - Nurse/Tech; Complete Time: 15: [facility] 04/03 13:28 Order name: US Extremity Venous W Compression Michael; Complete Time: 15: [facility] 04/03 13:28 Order name: Ankle Right 3 View XRAY; Complete Time: 15: [facility] 04/03 12:39 Order name: IV Saline Lock; Complete Time: 15: [facility] 04/03 12:39 Order name: Labs collected and sent; Complete Time: 15: [facility] 04/03 12:39 Order name: O2 Per Protocol; Complete Time: 15:15 [facility] 04/03 12:39 Order name: O2 Sat Monitoring; Complete Time: 15:15 kdr EC:32 Rate is 87 beats/min. Rhythm is regular, Sinus Rhythm with No ectopy. QRS Warren is kdr Normal. OK interval is normal. QRS interval is normal. QT interval is normal. Clinical impression: No evidence of ischemia. Administered Medications: 15:13 Drug: Lasix (furosemide) 40 mg Route: IVP; Site: right antecubital; [facility] 15:56 Follow up: Response: No adverse reaction [facility] Disposition Summary: 04/03/21 15:47 Discharge Ordered Location: Home kdr Problem: new kdr Symptoms: have improved kdr Condition: Stable kdr Diagnosis - Shortness of breath kdr - Chest pain, unspecified kdr - Bilateral lower extremity swelling, right ankle pain kdr Followup: kdr - With: Private Physician - When: 2 - 3 days - Reason: If symptoms return, Further diagnostic work-up, Recheck today's complaints, Continuance of care, Re-evaluation by your physician Discharge Instructions: - Discharge Summary Sheet kdr - Shortness of Breath, Adult, [id number] kdr - Nonspecific Chest Pain, Adult, [id number] kdr Forms: - Medication Reconciliation Form kdr - Thank You Letter kdr - Work release form ld1 Prescriptions: - Lasix 20 mg Oral Tablet - take 1 tablet by ORAL route once daily; 10 tablet; Refills: 0, Product kdr Selection Permitted Signatures: Dispatcher [employer] He Murphy MD MD kdr Calderon, Audri RN RN aa5 Darcy Uriarte RN RN jh6
--- NOTE | 2021-04-03 15:48 | ER ---
Nurse's Notes [facility] Name: Katrina Betts Age: 40 yrs Sex: Female : 1980 Arrival Date: 04/03/2021 Time: 12:03 Bed 13 Private MD: Diagnosis: Shortness of breath;Chest pain, unspecified;Bilateral lower extremity swelling, right ankle pain Presentation: 04/03 12:15 Chief complaint: Patient states: "last week I was here for the same thing". Pt c/o SOB, aa5 gilberto leg swelling, high blood pressure of 143/102. Pt also c/o chest pain. Coronavirus screen: shortness of breath. Ebola Screen: No symptoms or risks identified at this time. Initial Sepsis Screen: Does the patient meet any 2 criteria? HR > 90 bpm. Does the patient have a suspected source of infection? No. Patient's initial sepsis screen is negative. Risk Assessment: Do you want to hurt yourself or someone else? Patient reports no desire to harm self or others. Onset of symptoms was March 2021. 12:15 Acuity: CINDY 3 aa5 12:15 Method Of Arrival: Ambulatory 5 Triage Assessment: 13:30 Respiratory: Onset: The symptoms/episode began/occurred 4-5 days prior. [facility] 15:57 General: Appears in no apparent distress. Respiratory: the patient has mild shortness [facility] of breath. 15:57 Respiratory: Reports shortness of breath on exertion. 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 - Social history:: Smoking status: Patient reports the use of cigarette tobacco products, smokes one pack cigarettes per day. Screenin:03 Abuse screen: Denies threats or abuse. Nutritional screening: No deficits noted. [facility] Tuberculosis screening: No symptoms or risk factors identified. Fall Risk None identified. Assessment: 13:58 General: Appears in no apparent distress. Behavior is calm, cooperative. Pain: 6 Complains of pain in left arm Pain radiates to left arm Pain currently is 3 out of 10 on a pain scale. at worst was 7 out of 10 on a pain scale. Cardiovascular: Rhythm is regular. Respiratory: No deficits noted. Airway Respiratory effort is even, unlabored. 14:10 Respiratory: No deficits noted. Breath sounds are clear bilaterally. jh6 14:50 Reassessment: Patient and/or family updated on plan of care and expected duration. Pain jh6 level reassessed. 15:44 Reassessment: Patient appears in no apparent distress at this time. No changes from 6 previously documented assessment. Patient states symptoms have improved. General: Appears in no apparent distress. Behavior is calm, Watching tv, able to move l arm freely and without pain.. 15:57 Respiratory: Breath sounds are clear bilaterally. jh6 Vital Signs: 12:15 BP 131 / 89; Pulse 98; Resp 18 S; Temp 98.5(TE); Pulse Ox 99% on R/A; Weight 102.24 kg aa5 (R); Height 5 ft. 4 in. (162.56 cm) (R); 12:30 BP 109 / 78; Pulse 88; Temp 98.4; Pulse Ox 99% ; tp1 13:30 BP 111 / 72; Pulse 76; Resp 17; Pulse Ox 100% on R/A; jh6 15:43 BP 108 / 64; Pulse 70; Resp 16; Temp 98.2(O); Pulse Ox 100% ; Pain 3/10; jh6 12:15 Body Mass Index 38.69 (102.24 kg, 162.56 cm) aa5 ED Course: 12:03 Patient arrived in ED. rg4 12:07 He Johnson MD is Attending Physician. kdr 12:14 Arm band placed on. aa5 12:17 Triage completed. aa5 12:30 Call light in reach. Side rails up X 1. jh6 13:00 Inserted saline lock: 22 gauge in right antecubital area, using aseptic technique. jh6 13:20 XRAY Chest (1 view) In Process Unspecified. EDMS 13:26 Darcy Uriarte, MAX is Primary Nurse. jh6 14:11 US Extremity Venous W Compression Gilberto In Process Unspecified. EDMS 14:35 Ankle Right 3 View XRAY In Process Unspecified. EDMS 15:57 No provider procedures requiring assistance completed. jh6 15:58 IV discontinued, intact, bleeding controlled, No redness/swelling at site. Pressure jh6 dressing applied. Administered Medications: 15:13 Drug: Lasix (furosemide) 40 mg Route: IVP; Site: right antecubital; [facility] 15:56 Follow up: Response: No adverse reaction [facility] Outcome: 15:47 Discharge ordered by . [facility] 15:58 Discharged to home ambulatory. [facility] 15:58 Condition: good 15:58 Discharge instructions given to patient. 16:02 Patient left the ED. [facility] Signatures: Dispatcher [employer] EDMS He Johnson MD MD kdr Calderon, Audri, RN RN aa5 Sakshi Adler4 Darcy Uriarte RN RN jh6 Liat Reardon tp1
[2021-04-03 16:29] VITALS: O2SAT 100
[2021-04-03 16:30] VITALS: BP 108/64; TEMP 98.2
--- NOTE | 2021-04-04 08:04 | EKG ---
Test Date: 2021-04-03 Test Time: 12:21:03 Bridge Design Engineer: BEV MEASUREMENT RESULTS: Intervals: Rate: 87 MD: 114 QRSD: 92 QT: 350 QTc: 421 [place]: P: 56 MD: 114 QRS: 62 T: 45 INTERPRETIVE STATEMENTS: Normal sinus rhythm Cannot rule out Anterior infarct, age undetermined Abnormal ECG Compared to ECG 03/29/2021 21:14:22 Myocardial infarct finding now present Short MD interval no longer present Electronically Signed On 04-04-21 08:03:14 PLATE FURNACE OPERATOR by Grant Wilcox
== END 2021-04-03 16:02 | disposition home or self-care (01) ==
LOC: ER 12:01
DX: R07.9 Chest pain, unspecified (principal); R60.0 Localized edema; M25.571 Pain in right ankle and joints of right foot; F17.210 Nicotine dependence, cigarettes, uncomplicated
CPT/HCPCS: 93005; 85025; 80048; 36415; 83735; 85610; 80076; 84484; 83880; 71045; 73610; 93970; 96374; 99284; J1940

== ENCOUNTER 2021-10-31 17:17 | Emergency (ER) | payer BC ==
--- OUTSIDE RECORDS SUMMARY | 2021-10-31 17:22 | XMS REPORT | Continuity of Care Document ---
:1980 Author Organization [facility] t Address [address] [place] [address] Care Team Providers Name Role Phone Jenna Amanda Primary Care Physician Roshan GREGORIO Attending Clinician Unavailable Wendy Sevilla Attending Clinician Roshan Babin Attending Clinician Jagruti COTTRELL Attending Clinician JAGRUTI Attending Clinician Unavailable Payers Payer Name Policy Type Policy Number Effective Date Expiration Date S rocco [facility] [place] [facility] [id number] 2018 00:00:00 Problems Condition Condition Condition Status Onset Resolution Last Treating Co mments Source Name Details Category Date Date Treatment Clinician Date Migraine Migraine Disease Active Unive rs with with 9- ity of status status 00:00: [place] migrainosu migrainosu 00 Me dical s s Branch Persistent Persistent Disease Active U nivers headaches headaches - ity of 00:00: [place] 00 Medical Branch Headache Headache Disease Active Unive rs ity of 00:00: [place] 00 [facility] Allergies, Adverse Reactions, Alerts Allergy Allergy Status Severity Reaction(s) Onset Inactive Treating Comm ents Source Name Type Date Date Clinician No Known DA Active U 2017- [facility] All[facility]ie 2-30 [place] [facility] 00:[facility]: [facility] NO KNOWN Drug Active Univers ALLERGIE Class ity of S [facility] Social History Social Habit Start Date Stop Date Quantity Comments Source Exposure to 2021-08-26 2021-09-05 Not sure University SARS-CoV-2 (event) 00:00:00 20:07:00 [facility] Alcohol intake 2021-08-06 2021-08-06 Current University of 00:00:00 00:00:00 non-drinker of [facility] alcohol Branch (finding) Cigarettes smoked 2021-07-05 2021-07-05 Univers ity of current (pack per 00:00:00 00:00:00 [place] ) - Reported Branch Tobacco use and 2021-07-05 2021-07-05 Never used Universit y of exposure 00:00:00 00:00:00 [facility] History of tobacco 2018-08-14 Cigarette Smoker University of use 00:00:00 [facility] Sex Ass[birth year] Universit y of 00:00:00 00:00:00 [facility] Smoking Status Start Date Stop Date Source Current some day smoker 2021-07-05 00:00:00 [facility] Medications Ordered Filled Start Stop Current Ordering Indication Dosage Frequency Signature Comments Components Source Medication Medication Date Date Medication? Clinician (SIG) Name Name metoclopram No 10mg 10 mg, Uni vers osvaldo HCl 09-06 Slow IV ity of (REGLAN) 03:45: 04:00 [place], [place] injection 00 :00 ONCE, 1 Medical 10 mg dose, On Branch Fri09/05/21 at 2245, MATT ketorolac No 15mg 15 mg, Unive rs (TORADOL) 09-06 Slow IV ity of injection 03:45: 03:58 [place], [place] 15 mg 00 :00 ONCE, 1 Medical dose, On Branch Fri09/05/21 at 2245, MATT
Fa culty member approving Restricted medication : LUZ, K WENDY NaCl 0.9% 2021- No 1000mL at 999 Uni vers (NS) bolus 09-06- mL/hr, ity of infusion 03:45: 05:08 1,000 mL, Goran as 1,000 mL 00 :00 IV Medical Infusion, Branch ONCE, 1 dose, On Fri09/05/21 at 2245, STAT diphenhydrA 2021- No 25mg 25 mg, Uni vers MINE 09-06 Slow IV ity of (BENADRYL) 03:45: 03:59 [place], [place] injection 00 :00 ONCE, 1 Medical 25 mg dose, On Branch Fri09/05/21 at 2245, STAT cyclobenzap 2021-0 Yes [id number] 10mg Take 1 Univers rine 10 mg 3-28 tablet by ity of tablet 00:00: mouth 3 [place] 00 (three) Medical times [place] daily as needed for Muscle Spasms. cyclobenzap 2021-0 Yes [id number] 10mg Take 1 Univers rine 10 mg 3-28 tablet by ity of tablet 00:00: mouth 3 [place] 00 (three) Medical times [place] daily as needed for Muscle Spasms. nebivoloL 0 Yes 10mg Take 10 mg Un barbra 10 mg 2-24 by mouth ity of tablet 09:35: daily. [address] omeprazole 2021-0 Yes 40mg Take 40 mg U nivers 40 mg 2-24 by mouth ity of capsule 09:35: daily. [address] ubrogepant 2021-0 Yes Take by Uni vers (UBRELVY) 2-24 mouth ity of 100 mg Tab 09:35: daily. [address] eluxadoline 2021-0 Yes Take by Un barbra (VIBERZI) 2-24 mouth ity of 100 mg Tab 09:35: daily. [address] nebivoloL 2021-0 Yes 10mg Take 10 mg Un barbra 10 mg 2-24 by mouth ity of tablet 09:35: daily. [address] omeprazole 2021-0 Yes 40mg Take 40 mg U nivers 40 mg 2-24 by mouth ity of capsule 09:35: daily. [address] ubrogepant 2021-0 Yes Take by Uni vers (UBRELVY) 2-24 mouth ity of 100 mg Tab 09:35: daily. [place] [address] Medical Branch eluxadoline 2021-0 Yes Take by Un barbra (VIBERZI) 2-24 mouth ity of 100 mg Tab 09:35: daily. [place] [address] Medical Branch nebivoloL 2021-0 Yes 10mg Take 10 mg Un barbra 10 mg 2-24 by mouth ity of tablet 09:35: daily. [place] [address] Medical Branch omeprazole 2021-0 Yes 40mg Take 40 mg U nivers 40 mg 2-24 by mouth ity of capsule 09:35: daily. [place] [address] Medical Branch ubrogepant 2021-0 Yes Take by Uni vers (UBRELVY) 2-24 mouth ity of 100 mg Tab 09:35: daily. [place] [address] Medical Branch eluxadoline 2021-0 Yes Take by Un barbra (VIBERZI) 2-24 mouth ity of 100 mg Tab 09:35: daily. [address] Branch dextroamphe 2021-0 Yes 30mg Take 30 mg Univers tamine-amph 2-24 by mouth 2 it y of etamine 09:35: (two) [place] (ADDERALL) 42 times Medical 30 mg daily. Branch tablet dicyclomine 2021-0 Yes 20mg Take 20 mg Univers 20 mg 2-24 by mouth 2 ity of tablet 09:35: (two) [place] 42 times Medical daily. Branch DULoxetine 2021-0 Yes 30mg Take 30 mg U nivers 30 mg 2-24 by mouth 2 ity of capsule 09:35: (two) [place] 42 times Medical daily. Branch FLUoxetine 2021-0 Yes 10mg Take 10 mg U nivers 10 mg 2-24 by mouth ity of capsule 09:35: daily. [address] Branch furosemide 2021-0 Yes 20mg Take 20 mg U nivers 20 mg 2-24 by mouth ity of tablet 09:35: daily. [address] Branch guaiFENesin 2021-0 Yes 600mg Take 600 U nivers 600 mg 2-24 mg by ity of tablet 09:35: mouth [place] [address] every 12 Medical (twelve) Branch hours. peppermint 2021-0 Yes 90mg Take 90 mg U nivers oil (IBGARD 2-24 by mouth. ity of ORAL) 09:35: [place] 42 Medical Branch lisinopriL 2022-0 Yes 5mg Take 5 mg Un barbra 5 mg tablet 2-24 by mouth ity of 09:35: daily. [place] [address] Medical Branch dextroamphe 2022-0 Yes 30mg Take 30 mg Univers tamine-amph 2-24 by mouth 2 it y of etamine 09:35: (two) [place] (ADDERALL) 42 times Medical 30 mg daily. Branch tablet dicyclomine 2022-0 Yes 20mg Take 20 mg Univers 20 mg 2-24 by mouth 2 ity of tablet 09:35: (two) [place] 42 times Medical daily. Branch DULoxetine 2022-0 Yes 30mg Take 30 mg U nivers 30 mg 2-24 by mouth 2 ity of capsule 09:35: (two) [place] 42 times Medical daily. Branch FLUoxetine 2-0 Yes 10mg Take 10 mg U nivers 10 mg 2-24 by mouth ity of capsule 09:35: daily. [address] Branch furosemide 2-0 Yes 20mg Take 20 mg U nivers 20 mg 2-24 by mouth ity of tablet 09:35: daily. [address] Branch guaiFENesin 2-0 Yes 600mg Take 600 U nivers 600 mg 2-24 mg by ity of tablet 09:35: mouth [place] [address] every 12 Medical (twelve) Branch hours. peppermint 2-0 Yes 90mg Take 90 mg U nivers oil (IBGARD 2-24 by mouth. ity of ORAL) 09:35: [place] [address] Medical Branch lisinopriL 2022-0 Yes 5mg Take 5 mg Un barbra 5 mg tablet 2-24 by mouth ity of 09:35: daily. [place] [address] Medical Branch dextroamphe 2022-0 Yes 30mg Take 30 mg Univers tamine-amph 2-24 by mouth 2 it y of etamine 09:35: (two) [place] (ADDERALL) 42 times Medical 30 mg daily. Branch tablet dicyclomine 2022-0 Yes 20mg Take 20 mg Univers 20 mg 2-24 by mouth 2 ity of tablet 09:35: (two) [place] 42 times Medical daily. Branch DULoxetine 2022-0 Yes 30mg Take 30 mg U nivers 30 mg 2-24 by mouth 2 ity of capsule 09:35: (two) [place] 42 times Medical daily. Branch FLUoxetine 2021-0 Yes 10mg Take 10 mg U nivers 10 mg 2-24 by mouth ity of capsule 09:35: daily. [place] [address] Medical Branch furosemide 2021-0 Yes 20mg Take 20 mg U nivers 20 mg 2-24 by mouth ity of tablet 09:35: daily. [place] [address] Medical Branch guaiFENesin 2021-0 Yes 600mg Take 600 U nivers 600 mg 2-24 mg by ity of tablet 09:35: mouth [place] [address] every 12 Medical (twelve) Branch hours. peppermint 2021-0 Yes 90mg Take 90 mg U nivers oil (IBGARD 2-24 by mouth. ity of ORAL) 09:35: [place] [address] Medical Branch lisinopriL 2021-0 Yes 5mg Take 5 mg Un barbra 5 mg tablet 2-24 by mouth ity of 09:35: daily. [place] [address] Medical Branch SERTraline 2021-0 Yes 100mg Take 100 Un barbra (ZOLOFT) 2-24 mg by ity of 100 mg 09:29: mouth [place] tablet 21 daily. Medical Branch BUSPIRONE 2021-0 Yes Take by Univ ers HCL (BUSPAR 2-24 mouth. ity of ORAL) 09:29: [place] [address] Medical Branch dextroamphe 2021-0 Yes 15mg Take 15 mg Univers tamine-amph 2-24 by mouth ity of etamine 09:29: daily. [place] (ADDERALL) [address] [place] [address] 15 mg Branch tablet SERTraline 2021-0 Yes 100mg Take 100 Un barbra (ZOLOFT) 2-24 mg by ity of 100 mg 09:29: mouth [place] tablet 21 daily. Medical Branch BUSPIRONE 2021-0 Yes Take by Univ ers HCL (BUSPAR 2-24 mouth. ity of ORAL) 09:29: [place] [address] Medical Branch dextroamphe 2021-0 Yes 15mg Take 15 mg Univers tamine-amph 2-24 by mouth ity of etamine 09:29: daily. [place] (ADDERALL) 21 Medical 15 mg Branch tablet SERTraline 2021-0 Yes 100mg Take 100 Un barbra (ZOLOFT) 2-24 mg by ity of 100 mg 09:29: mouth [place] tablet 21 daily. Medical Branch BUSPIRONE 2021-0 Yes Take by Univ ers HCL (BUSPAR 2-24 mouth. ity of ORAL) 09:29: [place] 21 [facility] Branch dextroamphe Yes 15mg Take 15 mg Univers tamine-amph 2-24 by mouth ity of etamine 09:29: daily. [place] (ADDERALL) 21 Medical 15 mg Branch tablet triamcinolo Yes [id number] Apply to [facility] 6-03 area(s) 2 ity of acetonide 00:00: (two) [place] 0.1 % 00 times Medical ointment daily. Branch triamcinolo Yes [id number] Apply to [facility] 6-03 area(s) 2 ity of acetonide 00:00: (two) [place] 0.1 % 00 times Medical ointment daily. Branch triamcinolo Yes [id number] Apply to [facility] 6-03 area(s) 2 ity of acetonide 00:00: (two) [place] 0.1 % 00 times Medical ointment daily. Branch amoxicillin Yes TK 1 C Q 8 Univers 500 mg 5-20 H TAT ity of capsule 00:00: [place] [facility] amoxicillin Yes TK 1 C Q 8 Univers 500 mg 5-20 H TAT ity of capsule 00:00: [place] [facility] amoxicillin Yes TK 1 C Q 8 Univers 500 mg 5-20 H TAT ity of capsule 00:00: [place] [facility] dextroamphe Yes Univer s tamine-amph 4-04 ity of etamine 15 00:00: [place] mg tablet 00 [facility] dextroamphe Yes Univer s tamine-amph 4-04 ity of etamine 15 00:00: [place] mg tablet 00 [facility] dextroamphe Yes Univer s tamine-amph 4-04 ity of etamine 15 00:00: [place] mg tablet [facility] ondansetron Yes 4mg Take 1 Univ ers [...] hours as needed for Pain (scale 4-6). ondansetron 2018-0 Yes 4mg Take 1 Univ ers (ZOFRAN 4-09 tablet by ity of ODT) 4 mg 00:00: mouth [place] disintegrat 00 every 8 Medic al ing tablet (eight) Branch hours as needed for N/V unresponsi ve to Promethazi ne. acetaminoph 0 Yes 1{tbl} Take 1 Un barbra en-codeine 4-09 tablet by ity of (TYLENOL-CO 00:00: mouth [place] DEINE #3) 00 every 6 Medical 300-30 mg (six) Branch tablet hours as needed for Pain (scale 4-6). ondansetron 2017-0 Yes 4mg Take 1 Univ ers (ZOFRAN 4-09 tablet by ity of ODT) 4 mg 00:00: mouth [place] disintegrat 00 every 8 Medic al ing tablet (eight) Branch hours as needed for N/V unresponsi ve to Promethazi ne. acetaminoph 0 Yes 1{tbl} Take 1 Un barbra en-codeine 4-09 tablet by ity of (TYLENOL-CO 00:00: mouth [place] DEINE #3) 00 every 6 Medical 300-30 mg (six) Branch tablet hours as needed for Pain (scale 4-6). lactulose 2016-05 Yes 10g Take 1 Univer s 10 gram 2-18 Packet by ity of packet 00:00: mouth 3 00 (three) Medical times Branch daily. Polyethylen 2016-05 Yes 1{packe Take 1 U nivers e Glycol 2-18 t} Packet by ity of 3350 00:00: mouth [place] (MIRALAX) 00 daily. Medical 17 gram Branch powder butalbital- 2017- Yes 1{tbl} Take 1 Un barbra acetaminoph 2-18 tablet by ity of en-caff 00:00: mouth [place] 50-325-40 00 every 6 Medical mg tablet (six) Branch hours as needed for Headache (Headache) . lactulose 2016-05 Yes 10g Take 1 Univer s 10 gram 2-18 Packet by ity of packet 00:00: mouth 3 [place] 00 (three) Medical times Branch daily. Polyethylen 2016- Yes 1{packe Take 1 U nivers e Glycol 2-18 t} Packet by ity of 3350 00:00: mouth [place] (MIRALAX) 00 daily. Medical 17 gram Branch powder butalbital- 2016- Yes 1{tbl} Take 1 Un barbra acetaminoph 2-18 tablet by ity of en-caff 00:00: mouth [place] 50-325-40 00 every 6 Medical mg tablet (six) Branch hours as needed for Headache (Headache) . lactulose 2016-05 Yes 10g Take 1 Univer s 10 gram 2-18 Packet by ity of packet 00:00: mouth 3 00 (three) Medical times Branch daily. Polyethylen 2016- Yes 1{packe Take 1 U nivers e Glycol 2-18 t} Packet by ity of 3350 00:00: mouth [place] (MIRALAX) 00 daily. Medical 17 gram Branch powder butalbital- 2016-05 Yes 1{tbl} Take 1 Un barbra acetaminoph 2-18 tablet by ity of en-caff 00:00: mouth [place] 50-325-40 00 every 6 Medical mg tablet (six) Branch hours as needed for Headache (Headache) . sucralfate 2017-0 Yes 1g Take 1 Unive rs 1 gram 6-28 tablet by ity of tablet 00:00: mouth [place] 00 before Medical meals and Branch at bedtime. Pantoprazol 2017-0 Yes 40mg Take 40 mg Univers e 6-28 by mouth ity of (PROTONIX) 00:00: daily. [place] 40 mg 00 Medical delayed-rel Branch ease suspension sucralfate 2017-0 Yes 1g Take 1 Unive rs 1 gram 6-28 tablet by ity of tablet 00:00: mouth [place] 00 before Medical meals and Branch at bedtime. Pantoprazol 2017-0 Yes 40mg Take 40 mg Univers e 6-28 by mouth ity of (PROTONIX) 00:00: daily. [place] 40 mg 00 Medical delayed-rel Branch ease suspension sucralfate 2017-0 Yes 1g Take 1 Unive rs 1 gram 6-28 tablet by ity of tablet 00:00: mouth [place] 00 before Medical meals and Branch at bedtime. Pantoprazol 2017-0 Yes 40mg Take 40 mg Univers e 6-28 by mouth ity of (PROTONIX) 00:00: daily. [place] 40 mg 00 Medical delayed-rel Branch ease suspension Polyethylen 2015-05 Yes 17g Take 1 Univ ers e Glycol 0-01 Packet by ity of 3350 00:00: mouth once [place] (MIRALAX) 00 daily as Medica l 17 gram needed for Branch powder Constipati on. Polyethylen 2015-05 Yes 17g Take 1 Univ ers e Glycol 0-01 Packet by ity of 3350 00:00: mouth once [place] (MIRALAX) 00 daily as Medica l 17 gram needed for Branch powder Constipati on. Polyethylen 2015-05 Yes 17g Take 1 Univ [...] Yes 100mg Take 1 Uni vers (IMITREX) 9- tablet by ity o f 100 mg 00:00: mouth as [place] tablet 00 needed for Medical Migraine. Branch pantoprazol Yes 40mg Take 1 Univ ers e 9-28 tablet by ity of (PROTONIX) 00:00: mouth [place] 40 mg EC 00 daily. Medical tablet Branch amitriptyli Yes 25mg Take 1 Univ ers ne (ELAVIL) 9- tablet by ity of 25 mg 00:00: [...] Pain (scale 4-6) or Pain (scale 7-10). topiramate 2016-0 Yes 50mg Take 1 Unive rs (TOPAMAX) 9-28 tablet by ity o f 50 mg 00:00: mouth 2 [place] tablet 00 (two) Medical times Branch daily. sumatriptan 2016-0 Yes 100mg Take 1 Uni vers (IMITREX) 9-28 tablet by ity o f 100 mg 00:00: mouth as [place] tablet 00 needed for Medical Migraine. Branch pantoprazol 2015-0 Yes 40mg Take 1 Univ ers e 9-28 tablet by ity of (PROTONIX) 00:00: mouth [place] 40 mg EC 00 daily. Medical tablet Branch amitriptyli 2015-0 Yes 25mg Take 1 Univ ers ne (ELAVIL) 9-28 tablet by ity of 25 mg 00:00: mouth at [place] tablet 00 bedtime. Medical Branch metoclopram 2015-0 Yes 10mg Take 1 Univ ers osvaldo HCl -28 tablet by ity of (REGLAN) 10 00:00: mouth [place] mg tablet 00 every 6 Medical (six) Branch hours as needed for Nausea and Vomiting (N/V). acetaminoph 2016-0 Yes 1{capsu Take 1 U nivers en-caff-but 02-06 le} capsule by it y of albital 00:00: mouth [place] (ESGIC) per 00 every 4 Medic al capsule (four) Branch hours as needed for Headache. ketorolac 2016-0 Yes 10mg Take 1 Univer s (TORADOL) 9-28 tablet by ity o f 10 mg 00:00: mouth [place] tablet 00 every 6 Medical (six) Branch hours as needed for Pain (scale 4-6) or Pain (scale 7-10). topiramate 2016-0 Yes 50mg Take 1 Unive rs (TOPAMAX) 9-28 tablet by ity o f 50 mg 00:00: mouth 2 [place] tablet 00 (two) Medical times Branch daily. sumatriptan 2016-0 Yes 100mg Take 1 Uni vers (IMITREX) 9-28 tablet by ity o f 100 mg 00:00: mouth as [place] tablet 00 needed for Medical Migraine. Branch pantoprazol Yes 40mg Take 1 Univ ers e - tablet by ity of (PROTONIX) 00:00: mouth [place] 40 mg EC 00 daily. Medical tablet Branch amitriptyli Yes 25mg Take 1 Univ ers ne (ELAVIL) 9- tablet by ity of 25 mg 00:00: mouth at [place] tablet 00 bedtime. Medical Branch metoclopram Yes 10mg Take 1 Univ ers osvaldo HCl - tablet by ity of (REGLAN) 10 00:00: [...] Yes 10mg Take 1 Univer s (TORADOL) 02-06 tablet by ity o f 10 mg 00:00: mouth [place] tablet 00 every 6 Medical (six) Branch hours as needed for Pain (scale 4-6) or Pain (scale 7-10). Immunizations Ordered Filled Immunization Date Status Comments [facility] e Immunization Name Name Td 2015-08-11 Completed University of 00:00:00 [facility] Td 2015-08-11 Completed University 00:00:00 [facility] Td 2015-08-11 Completed [facility] 00:00:00 [facility] Vital Signs Vital Name Observation Time Observation Value Comments Source Systolic blood 2021-09-06 05:00:00 106 mm[Hg] Univer sity of pressure [facility] Diastolic blood 2021-09-06 05:00:00 78 mm[Hg[facility] Heart rate 2021-09-06 05:00:00 77 /min [facility] Respiratory rate 2021-09-06 05:00:00 16 /min [facility] Oxygen saturation in 2021-09-06 05:00:00 100 /min [facility] Arterial blood by [facility] Pulse oximetry Branch Body temperature 2021-09-06 01:12:00 37.11 [facility] Body height 2021-09-06 01:12:00 162.6 cm Universi ty of [place] Medical [place] Body weight 2021-09-06 01:12:00 104.327 kg Universi ty of [facility] BMI 2021-09-06 01:12:00 39.48 kg/m2 Universi ty of [facility] Systolic blood 2021-07-05 15:11:00 116 mm[Hg] Univer sity of pressure [facility] Diastolic blood 2021-07-05 15:11:00 80 mm[Hg] Unive rsity of pressure [facility] Heart rate 2021-07-05 15:11:00 98 /min Universi ty of [facility] Body height 2021-07-05 15:11:00 162.6 cm Universi ty of [facility] Body weight 2021-07-05 15:11:00 101.294 kg Universi ty of [facility] BMI 2021-07-05 15:11:00 38.33 kg/m2 Universi ty [facility] Oxygen saturation in 2021-07-05 15:11:00 100 /min [facility] Arterial blood by [facility] Pulse oximetry Branch Procedures Procedure Date / Time Performed Performing Clinician [facility] e NOTICE OF PRIVACY 2021-09-06 00:57:41 Doctor Unassigned, No Univ [facility] PRACTICES Name Medical Branch CONSENT/REFUSAL FOR 2021-09-06 00:57:31 [facility] AND Name Medical Branch TREATMENT HB ECG ROUTINE & 2021-07-05 15:21:30 Ascenc[facility] Horner [facility] RHYTHM STRIP Medical Branch Encounters Start End Encounter Admission Attending Care Care Encounter Source Date/Time Date/Time Type Type Clinicians Facility Department ID 2021-09-05 2021-09-06 Emergency X DARLINE ARJENAN ERT [id number] Univers 20:15:00 00:10:00 TEGAN hall of [facility] 2021-09-05 2021-09-06 Emergency Kang Tanner [facility] [id number] Univers 20:15:00 00:10:00 Tegan Gregorio [id number] itevaristo [facility] [id number] [facility] [id number] [facility] 084 Branch 2021-08-16 2021-08-16 [facility] [id number] Univers 00:00:00 00:00:00 [facility] [place] [id number] ity TAMMYSAN [facility] [id number] [place] PROF[place] [phone] N[place] dicia NAL 9 Branch [facility] 2021-07-05 2021-07-05 [id number] Univers 09:00:00 09:56:28 ASCENCION hall o f [facility] 2021-07-05 2021-07-05 Office [facility] [id number] Univers 09:00:00 09:56:28 Visit [facility] [place] [id number] itVirajSAN [facility] [id number] [place] PROF[place] [phone] [place] [id number] [facility] Results This patient has no known results.
[2021-10-31 18:44] LABS: Hematocrit 40.1 % (36.0-45.0); Lymphocytes % 34.1 % (15.3-44.8); MPV 8.1 fL (7.6-11.3); RBC Red Blood Cell Count 4.26 M/uL (3.86-4.86)
[2021-10-31 18:46] LABS: Blood Morphology Comment NOT SEEN (NOT SEEN); Platelet Estimate ADEQ; White Blood Cell Scan OK (OK)
[2021-10-31 18:57] LABS: Albumin 3.1 g/dL (3.4-5.0); Bilirubin Total 0.2 mg/dL (0.2-1.0); Potassium 3.4 mmol/L (3.5-5.1); Protein, Total 6.4 g/dL (6.4-8.2)
[2021-10-31 19:40] LABS: Urine Blood 2+ (Negative); Urine Glucose Negative (Negative); Urine Protein Negative (Negative); Urine Specific Gravity >=1.030 (1.005-1.030); Urine pH 5.5 (5.0-7.0)
[2021-10-31] MEDS ORDERED: NA CHLORIDE 0.9% 1,000 ML ONE (19:51)
[2021-10-31] MEDS ORDERED: KETOROLAC 30 MG/ML INJ ONE (19:51)
[2021-10-31] MEDS ORDERED: PROMETHAZINE INJ 25 MG/ML AMP ONE (19:51)
--- NOTE | 2021-10-31 20:05 | RAD REPORT ---
EXAM DESCRIPTION: CTAbdomen Pelvis W Contrast - 10/31/2021 7:57 pm CLINICAL HISTORY: Abdominal pain, acute, nonlocalized COMPARISON: CT ABD PELVIS W CONTRAST dated 10/30/2014 TECHNIQUE: CT of the abdomen and pelvis was performed. All CT scans are performed using dose optimization technique as appropriate and may include automated exposure control or mA/KV adjustment according to patient size. FINDINGS: Lower chest: No acute abnormality. Liver: No acute abnormality or suspicious lesions. Biliary: Contracted gallbladder Stomach: No significant focal abnormality. Duodenum: No significant focal abnormality. Pancreas: No significant abnormality. Spleen: No significant abnormality. Adrenal: No suspicious lesions. Kidney/ureter: No hydronephrosis. No renal calculi. Subcentimeter left renal cyst Retroperitoneum: No retroperitoneal adenopathy. Vascular: No aneurysm. Bowel: No significant focal abnormality. Peritoneum: Trace free fluid which is likely physiologic. Small fat containing umbilical hernia Bladder: Grossly unremarkable. Reproductive: No adnexal masses. Bones: No acute fracture. Other: n/a IMPRESSION: No acute intra-abdominal or pelvic finding.
--- NOTE | 2021-10-31 21:12 | ER ---
Nurse's Notes [facility] Name: Katrina Betts Age: 41 yrs Sex: Female : 1980 Arrival Date: 10/31/2021 Time: 17:22 Bed 26 Private MD: Diagnosis: Vomiting;Diarrhea, unspecified;Abdominal pain, unspecified Presentation: 10/31 17:45 Chief complaint: Patient states: N/V/D and abd pain that began Friday. Coronavirus ss screen: Client denies travel out of the [place] in the last 14 days. Ebola Screen: Patient denies exposure to infectious person. Patient denies travel to an Ebola-affected area in the 21 days before illness onset. Initial Sepsis Screen: Does the patient meet any 2 criteria? No. Patient's initial sepsis screen is negative. Does the patient have a suspected source of infection? No. Patient's initial sepsis screen is negative. Risk Assessment: Do you want to hurt yourself or someone else? Patient reports no desire to harm self or others. Onset of symptoms was October 27, 2021. 17:45 Method Of Arrival: Ambulatory ss 17:45 Acuity: CINDY 3 ss Triage Assessment: 17:46 General: Appears in no apparent distress. comfortable, Behavior is calm, cooperative. ss Respiratory: Airway is patent Respiratory effort is even, unlabored, Respiratory pattern is regular, symmetrical. 21:24 GI: Reports lower abdominal pain. 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 [facility] Historical: - Allergies: 17:46 No Known Allergies; ss - Home Meds: 21:23 Adderall XR 30 mg Oral cp24 1 cap once daily [Active]; Benadryl 12.5 mg/5 mL Oral elix bh1 10 mL every 4 hours [Active]; dicyclomine 10 mg Oral cap 1 cap 3 times per day [Active]; duloxetine 30 mg Oral CDRS 1 cap once daily [Active]; fluoxetine 10 mg Oral cap 1 cap 2 times per day [Active]; gabapentin 300 mg Oral cap 1 cap 3 times per day [Active]; Headache Relief ([id number]) Oral [Active]; omeprazole 20 mg Oral cpDR 1 cap 2 times per day [Active]; Topamax 25 mg Oral tab 1 tab once daily [Active]; Topamax 15 mg Oral cpSP 1 cap 2 times per day [Active]; Viberzi 75 mg Oral tab 1 tab 2 times per day [Active]; Zofran 4 mg Oral tab 1 tab 4 times per day [Active]; - PMHx: 17:46 ADD; Anxiety; depressive disorder; Irritable bowel syndrome; ss - Immunization history:: Adult Immunizations up to date. - Social history:: Smoking status: Patient reports the use of cigarette tobacco products, denies chronic smoking, but will smoke occasionally, Reported history of juuling and/or vaping. Screenin:32 Abuse screen: Denies threats or abuse. Nutritional screening: No deficits noted. bh1 Tuberculosis screening: No symptoms or risk factors identified. Fall Risk None identified. Assessment: 19:32 Pain: Complains of pain in abdomen. GI: No deficits noted. Abdomen is non-distended, bh1 Bowel sounds present X 4 quads. Abd is soft Abdomen is tender to palpation X 4 quads. Vital Signs: 17:45 BP 122 / 88; Pulse 84; Resp 18; Temp 98.0(TE); Pulse Ox 100% on R/A; Height 5 ft. 4 in. ss (162.56 cm); Pain 7/10; 19:32 BP 107 / 75; Pulse 88; Resp 18; Pulse Ox 100% on R/A; bh1 20:06 BP 116 / 99; Pulse 88; Resp 20; Pulse Ox 99% on R/A; bh1 20:42 BP 103 / 69; Pulse 88; Resp 18; Pulse Ox 100% on R/A; bh1 21:05 BP 112 / ???; Pulse 74; Resp 18; Pulse Ox 95% on R/A; bh1 21:22 BP 133 / 68; Pulse 76; Resp 18; Temp 98.3(O); Pulse Ox 100% on R/A; bh1 ED Course: 17:22 Patient arrived in ED. rg4 17:46 Triage completed. ss 17:46 Arm band placed on right wrist. ss 18:36 Inserted saline lock: 22 gauge in left antecubital area, using aseptic technique. Blood zm collected. 18:37 CBC with Diff Sent. zm 18:37 CMP Sent. zm 18:37 Lipase Sent. zm 18:42 Taco Epps NP is PHCP. pm1 18:42 Jeramy Lopez MD is Attending Physician. pm1 19:26 Shazia Tee, MAX is Primary Nurse. [facility] 19:32 No apparent distress. Awaiting CT Scan. 1 19:32 Patient has correct armband on for positive identification. Bed in low position. Call [facility] light in reach. Adult w/ patient. Pulse ox on. NIBP on. 19:32 No provider procedures requiring assistance completed. 1 19:[address] 1 19:58 CT Abd/Pelvis - IV Contrast Only In Process Unspecified. EDMS 20:06 No apparent distress. Resting quietly. Awaiting lab results, Awaiting radiology results.1 20:42 Awaiting lab results, Awaiting radiology results. 1 21:06 Awaiting disposition. [facility] 21:23 IV discontinued, intact, bleeding controlled, No redness/swelling at site. [facility] Administered Medications: 20:05 Drug: Phenergan (promethazine) 12.5 mg Route: IVP; Site: left antecubital; [facility] 20:06 Follow up: Response: No adverse reaction [facility] 20:05 Drug: NS 0.9% 1000 ml Route: IV; Rate: 1000 ml; Site: left antecubital; [facility] 21:24 Follow up: IV Status: Completed infusion; IV Intake: 1000ml [facility] 20:05 Drug: Ketorolac 30 mg Route: IVP; Site: left antecubital; [facility] 20:05 Follow up: Response: No adverse reaction [facility] Medication: 19:32 VIS not applicable for this client. [facility] Intake: 21:24 IV: 1000ml; Total: 1000ml. [facility] Outcome: 21:11 Discharge ordered by . pm1 21:22 Discharged to home ambulatory, with family. [facility] 21:22 Condition: good 21:22 Discharge instructions given to patient, family, Instructed on discharge instructions, follow up and referral plans. medication usage, Demonstrated understanding of instructions, follow-up care, medications, Prescriptions given X 2. 21:24 Patient left the ED. [facility] Signatures: Dispatcher [employer] EDMS Sneha Mars RN RN ss Taco Epps, PRESS BREAKER PRESS BREAKER pm1 Sakshi Adler 4 Winsome Paez Barbara, MAX RN [facility]
--- NOTE | 2021-10-31 21:12 | EDPHYS ---
Physician Documentation [facility] Name: Katrina Betts Age: 41 yrs Sex: Female : 1980 Arrival Date: 10/31/2021 Time: 17:22 Bed 26 Private MD: ED Physician Jeramy Lopez HPI: 10/31 20:38 This 41 yrs old Female presents to ER via Ambulatory with complaints of pm1 Nausea/Vomiting/Diarrhea. 20:38 The patient presents to the emergency department with nausea, vomiting, diarrhea, pm1 abdominal pain, of the right upper quadrant, left upper quadrant and left lower quadrant. Onset: The symptoms/episode began/occurred 4 day(s) ago. Possible causes: unknown, patient reports that it feels different from her IBS. The symptoms are aggravated by nothing. The symptoms are alleviated by nothing. 20:38 Associated signs and symptoms: Pertinent positives: diarrhea, nausea, vomiting, pm1 Pertinent negatives: fever. Severity of symptoms: in the emergency department the symptoms are worse. The patient has not recently seen a physician. 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 bh1 Historical: - Allergies: 17:46 No Known Allergies; ss - Home Meds: 21:23 Adderall XR 30 mg Oral cp24 1 cap once daily [Active]; Benadryl 12.5 mg/5 mL Oral elix bh1 10 mL every 4 hours [Active]; dicyclomine 10 mg Oral cap 1 cap 3 times per day [Active]; duloxetine 30 mg Oral CDRS 1 cap once daily [Active]; fluoxetine 10 mg Oral cap 1 cap 2 times per day [Active]; gabapentin 300 mg Oral cap 1 cap 3 times per day [Active]; Headache Relief (JXF-gasopautsphv-zxawwtjl) Oral [Active]; omeprazole 20 mg Oral cpDR 1 cap 2 times per day [Active]; Topamax 25 mg Oral tab 1 tab once daily [Active]; Topamax 15 mg Oral cpSP 1 cap 2 times per day [Active]; Viberzi 75 mg Oral tab 1 tab 2 times per day [Active]; Zofran 4 mg Oral tab 1 tab 4 times per day [Active]; - PMHx: 17:46 ADD; Anxiety; depressive disorder; Irritable bowel syndrome; ss - Immunization history:: Adult Immunizations up to date. - Social history:: Smoking status: Patient reports the use of cigarette tobacco products, denies chronic smoking, but will smoke occasionally, Reported history of juuling and/or vaping. ROS: 20:38 Constitutional: Negative for fever, chills, and weight loss, Cardiovascular: Negative pm1 for chest pain, palpitations, and edema, Respiratory: Negative for shortness of breath, cough, wheezing, and pleuritic chest pain. 20:38 Back: Negative for injury and pain, MS/Extremity: Negative for injury and deformity, Skin: Negative for injury, rash, and discoloration, Neuro: Negative for headache, weakness, numbness, tingling, and seizure. 20:38 Abdomen/GI: Positive for abdominal pain, nausea, vomiting, and diarrhea, Negative for constipation. 20:38 All other systems are negative. Exam: 20:38 Constitutional: This is a well developed, well nourished patient who is awake, alert, pm1 and in no acute distress. Head/Face: Normocephalic, atraumatic. 20:38 Back: No spinal tenderness. No costovertebral tenderness. Full range of motion. Skin: Warm, dry with normal turgor. Normal color with no rashes, no lesions, and no evidence of cellulitis. MS/ Extremity: Pulses equal, no cyanosis. Neurovascular intact. Full, normal range of motion. 20:38 Abdomen/GI: Inspection: obese Palpation: soft, in all quadrants, moderate abdominal tenderness, in the left lower quadrant. 20:38 Neuro: Exam negative for acute changes, Orientation: is normal, Mentation: is normal, Motor: is normal, moves all fours. Vital Signs: 17:45 BP 122 / 88; Pulse 84; Resp 18; Temp 98.0(TE); Pulse Ox 100% on R/A; Height 5 ft. 4 in. ss (162.56 cm); Pain 7/10; 19:32 BP 107 / 75; Pulse 88; Resp 18; Pulse Ox 100% on R/A; bh1 20:06 BP 116 / 99; Pulse 88; Resp 20; Pulse Ox 99% on R/A; bh1 20:42 BP 103 / 69; Pulse 88; Resp 18; Pulse Ox 100% on R/A; bh1 21:05 BP 112 / ???; Pulse 74; Resp 18; Pulse Ox 95% on R/A; bh1 21:22 BP 133 / 68; Pulse 76; Resp 18; Temp 98.3(O); Pulse Ox 100% on R/A; bh1 MDM: 19:20 Patient medically screened. pm1 20:47 Data reviewed: vital signs. Data interpreted: Pulse oximetry: on room air is 100 %. pm1 Interpretation: normal. 20:55 Counseling: I had a detailed discussion with the patient and/or guardian regarding: the pm1 historical points, exam findings, and any diagnostic results supporting the discharge/admit diagnosis, lab results, radiology results, the need for outpatient follow up, a supervisor channel process, to return to the emergency department if symptoms worsen or persist or if there are any questions or concerns that arise at home. 10/31 17:54 Order name: CBC with Diff; Complete Time: 18:52 ss 10/31 17:54 Order name: CMP; Complete Time: 19:20 ss 10/31 17:54 Order name: Lipase; Complete Time: 19:20 10/31 18:46 Order name: CBC Smear Scan; Complete Time: 18:52 EDMS 10/31 19:40 Order name: Urine Dipstick-Ancillary; Complete Time: 20:16 EDMS 10/31 17:54 Order name: IV Saline Lock; Complete Time: 18:36 ss 10/31 17:54 Order name: Labs collected and sent; Complete Time: 18:36 ss 10/31 18:45 Order name: CT Abd/Pelvis - IV Contrast Only; Complete Time: 20:16 pm1 10/31 18:45 Order name: Urine Test (obtain specimen); Complete Time: 19:40 pm1 10/31 18:45 Order name: Urine Dipstick-Ancillary (obtain specimen); Complete Time: 19:40 pm1 Administered Medications: 20:05 Drug: Phenergan (promethazine) 12.5 mg Route: IVP; Site: [facility]ital; [facility] 20:06 Follow up: Response: No adverse reaction [facility] 20:05 Drug: NS 0.9% 1000 ml Route: IV; Rate: 1000 ml; Site: left antecubital; [facility] 21:24 Follow up: IV Status: Completed infusion; IV Intake: 1000ml [facility] 20:05 Drug: Ketorolac 30 mg Route: IVP; Site: left antecubital; [facility] 20:05 Follow up: Response: No adverse reaction [facility] Disposition Summary: 10/31/21 21:11 Discharge Ordered Location: Home pm1 Problem: new pm1 Symptoms: have improved pm1 Condition: Stable pm1 Diagnosis - Vomiting pm1 - Diarrhea, unspecified pm1 - Abdominal pain, unspecified pm1 Followup: pm1 - With: Emergency Department - When: As needed - Reason: Worsening of condition Followup: pm1 - With: Private Physician - When: 2 - 3 days - Reason: Recheck today's complaints, Continuance of care, Re-evaluation by your physician Discharge Instructions: - Discharge Summary Sheet pm1 - Abdominal Pain, Adult pm1 - Food Choices to Help Relieve Diarrhea, Adult pm1 - Diarrhea, Adult pm1 - Nausea and Vomiting, Adult pm1 Forms: - Medication Reconciliation Form pm1 - Thank You Letter pm1 - Antibiotic Education pm1 - Prescription Opioid Use pm1 - [facility] form [facility] Prescriptions: - promethazine 25 mg Oral Tablet - take 1 tablet by ORAL route every 6 hours As needed; 20 tablet; Refills: 0, pm1 Product Selection Permitted - Tylenol-Codeine #3 300 mg-30 mg Oral - take 2 tablet by ORAL route every 6 hours As needed; 20 tablet; Refills: 0, pm1 Product Selection Permitted Addendum: 11/02/2021 07:13 Co-signature as Attending Physician, Jeramy Lopez MD. r n Signatures: Dispatcher [employer] Jeramy Bethea MD MD rn Smirch, Shelby, RN RN ss Marinas, Patrick, NP WOOL BROKER 1 Shazia Tee RN RN [facility]
[2021-10-31 22:48] VITALS: BP 133/68; TEMP 98.3; O2SAT 100
== END 2021-10-31 21:24 | disposition home or self-care (01) ==
LOC: ER 17:17
DX: R11.2 Nausea with vomiting, unspecified (principal); R19.7 Diarrhea, unspecified; R10.32 Left lower quadrant pain; F41.9 Anxiety disorder, unspecified; F32.A Depression, unspecified; F17.210 Nicotine dependence, cigarettes, uncomplicated
CPT/HCPCS: 96361; 85025; 36415; 81003; 83690; 80053; 74177; 96375; 96374; 99284; Q9967; J2550; J7030